=== PATIENT | female | born 1980 | race Caucasian/White ===

== ENCOUNTER 2020-10-10 18:50 | Observation (INO) ==
[2020-10-10] MEDS ORDERED: SODIUM CHLORIDE 0.9% 500 ML IV STA (20:10)
[2020-10-10 20:57] LABS: Basophils # 0.1 10*3/uL (0.0-0.2); Basophils % 0.4 % (0.0-0.8); Hematocrit 46.3 VOL% (35.7-47.0); Hemoglobin 15.2 GM/DL (12.0-16.0); Immature Granulocytes % 0.8 %; Immature Granulocytes Absolute 0.17 #; Lymphocytes # 1.4 10*3/uL (1.4-4.0); Lymphocytes % 6.6 % (21.3-54.2); Mean Corpuscular HGB Conc 32.8 GM/DL (32-36); Mean Corpuscular Volume 91.9 FL (87-102); Mean Platelet Volume 12.6 FL (9.6-12.0); Monocytes % 8.8 % (1.7-12.7); Neutrophils % 83.4 % (38.7-73.9); Platelet Count 207 T/CUMM (130-400); Red Blood Count 5.04 MC/CUMM (3.8-5.5); Red Cell Distribution Width 13.2 % (9.3-17.3); White Blood Count 21.3 T/CUMM (4-12)
[2020-10-10 21:16] LABS: Alanine Aminotransferase 27 U/L (13-56); Albumin 3.9 G/DL (3.4-5.0); Alkaline Phosphatase 85 U/L (45-117); Aspartate Amino Transferase 20 U/L (0-37); Blood Urea Nitrogen 7 MG/DL (7-18); Calcium 9.1 MG/DL (8.5-10.1); Carbon Dioxide 21 MMOL/L (21-32); Estimated Glom Filtration Rate 114 ML/MIN; Glucose 119 MG/DL (74-106); Osmolality,Calculated 271.8 MOS/KG (273-304); Potassium 4.2 MMOL/L (3.5-5.1); Sodium 137 MMOL/L (136-145); Total Protein 7.7 G/DL (6.4-8.2)
[2020-10-10 21:36] LABS: Salicylate < 2.8 MG/DL (2.8-20)
[2020-10-10 21:37] LABS: Acetaminophen < 2.0 UG/ML (10-30)
[2020-10-10 22:17] LABS: Lactic Acid 1.8 MMOL/L (0.4-2.0)
[2020-10-10 22:22] LABS: Bilirubin,Urine Negative (Negative); Blood, Urine Negative (Negative); Glucose,Urine (UA) Negative (Negative); Ketones,Urine Negative (Negative); Mucus,Urine Occasional /LPF (Occasional); Nitrite,Urine Negative (Negative); Protein,Urine Negative; RBC,Urine 2 /HPF (0-4); Squamous Epithelial Cell,Urine Occasional /HPF (0-10); Urine Appearance CLEAR (Clear); Urine Color Yellow (Yellow); Urine Specific Gravity 1.009 (1.001-1.035); Urine Urobilinogen < 2.0 EU/DL (0.2-1.0)
[2020-10-10 22:32] LABS: Barbiturates Screen,Urine Negative (Negative); Benzodiazepines Screen,Urine Positive (Negative); Cannabinoid Screen,Urine Negative (Negative); Opiate Screen,Urine Negative (Negative); Phencyclidine Screen,Urine Negative (Negative)
[2020-10-10 23:35] LABS: Lymphocytes 5 % (20-55); Reactive Lymphocytes Few; Segmented Neutrophils 88 % (50-85); Total Cells Counted 100
[2020-10-10 23:36] LABS: Platelet Estimate Adequate
[2020-10-10] MEDS ORDERED: GLUCAGON 1 MG VIAL IM PRN (23:48)
[2020-10-10] MEDS ORDERED: ONDANSETRON 4 MG/2 ML VIAL IV PRN (23:48)
[2020-10-10] MEDS ORDERED: ACETAMINOPHEN 325 MG TABLET PO PRN (23:48)
[2020-10-10] MEDS ORDERED: DEXTROSE 50% 25 GM/50 ML VIAL IV PRN (23:48)
[2020-10-10] MEDS ORDERED: LORazepam 2 MG/1 ML VIAL IV PRN (23:53)
[2020-10-11 04:25] LABS: Basophils # 0.1 10*3/uL (0.0-0.2); Basophils % 0.5 % (0.0-0.8); Eosinophils # 0.1 10*3/uL (0.0-0.87); Eosinophils % 0.5 % (0.00-10.9); Hematocrit 44.3 VOL% (35.7-47.0); Hemoglobin 14.6 GM/DL (12.0-16.0); Immature Granulocytes % 0.9 %; Immature Granulocytes Absolute 0.11 #; Lymphocytes # 2.1 10*3/uL (1.4-4.0); Lymphocytes % 16.9 % (21.3-54.2); Mean Corpuscular Volume 91.3 FL (87-102); Mean Platelet Volume 10.7 FL (9.6-12.0); Neutrophils % 68.2 % (38.7-73.9); Platelet Count 324 T/CUMM (130-400); Red Blood Count 4.85 MC/CUMM (3.8-5.5); Red Cell Distribution Width 13.2 % (9.3-17.3); White Blood Count 12.4 T/CUMM (4-12)
[2020-10-11 04:47] LABS: Calcium 8.6 MG/DL (8.5-10.1); Osmolality,Calculated 273.7 MOS/KG (273-304); Potassium 3.5 MMOL/L (3.5-5.1); Thyroid Stimulating Hormone 2.16 uIU/ml (0.358-3.74)
[2020-10-11] MEDS ORDERED: POTASSIUM CHLORIDE 20 MEQ TABLET PO ONE ×2 (08:00→10:10)
[2020-10-11] MEDS ORDERED: levETIRAcetam 500 MG TABLET PO SCH (10:08)
[2020-10-11] MEDS ORDERED: PANTOPRAZOLE 40 MG TABLET PO STA (12:30)
[2020-10-11] MEDS ORDERED: ALUM/MAG/SIMETH/LIDO VISC 1:1 30 ML BOTTLE PO ONE (12:30)
[2020-10-11] MEDS ORDERED: PANTOPRAZOLE 40 MG TABLET PO ONE (12:32)
[2020-10-11] MEDS: DIVALPROEX ER 500 MG TABLET PO SCH (20:30)
[2020-10-12] MEDS ORDERED: PANTOPRAZOLE 40 MG TABLET PO SCH (09:00)
[2020-10-12] MEDS: DIVALPROEX ER 500 MG TABLET PO SCH (09:20)
[2020-10-12] MEDS ORDERED: ALPRAZolam 0.5 MG TABLET PO ONE (11:15)
[2020-10-12 12:07] VITALS: BP 123/87
== END 2020-10-12 13:30 ==
LOC: EDUNIT# → EDBD → N.EDINP 18:50 → N.ED 18:50 → SUATTDRO 23:48 → N.4E 10-11 16:44
PROVIDERS: ADMIT Hospitalist; ATTEND Internal Medicine